=== PATIENT | male | born 1935 | race Two or more races ===

== ENCOUNTER 2023-03-06 21:12 | Inpatient (IN) | payer MEDICARE, MEDICAID ==
[~2023-03-06] VITALS: Ht 175.3 cm; Wt 80.7 kg
[2023-03-06 23:40] VITALS: BP 154/82; TEMP 98.2; O2SAT 95
[2023-03-07] VITALS: BP 154/82; TEMP 98.6; O2SAT 95
[2023-03-07] MEDS ORDERED: ONDANSETRON HCL/PF 4 MG/2 ML VIAL IVP PRN (00:30)
[2023-03-07] MEDS ORDERED: ACETAMINOPHEN 325 MG TABLET PO PRN (00:30)
[2023-03-07] MEDS ORDERED: Z GUARD REMEDY 4 OZ OINT TP PRN (00:30)
[2023-03-07] MEDS ORDERED: NORM10004 IV (01:25)
[2023-03-07] MEDS ORDERED: CEFT2VIA14 IV (01:25)
[2023-03-07] MEDS: ENOXAPARIN SODIUM 40 MG/0.4 ML DISP.SYRIN SQ SCH ×2 (01:39→21:00)
[2023-03-07] MEDS: IV D5/0.45 NACL 1,000 ML IV PRN ×2 (01:41→14:14)
[2023-03-07] MEDS ORDERED: OLAN5TAB3 PO (01:59)
[2023-03-07] MEDS ORDERED: CHOL2400 MC (01:59)
[2023-03-07] MEDS ORDERED: ALLO300T2 PO (01:59)
[2023-03-07] MEDS ORDERED: BISA-79 PO (01:59)
[2023-03-07] MEDS ORDERED: LEVO50TA8 PO (01:59)
[2023-03-07] MEDS ORDERED: ROSU10TA2 PO (01:59)
[2023-03-07] MEDS ORDERED: ASPI-1169 PO (01:59)
[2023-03-07] MEDS ORDERED: DUTA1CPM PO (01:59)
[2023-03-07 04:00] VITALS: BP 167/84; TEMP 97.6; O2SAT 97
[2023-03-07 08:00] VITALS: BP 165/90; TEMP 97.5; O2SAT 94
[2023-03-07] MEDS: PANTOPRAZOLE 40 MG VIAL IV SCH (08:57)
[2023-03-07 09:39] LABS: BASOPHILS % (AUTO) 0.1 % (0.0-2.0); EOSINOPHILS % (AUTO) 0.3 % (0.0-6.0); HEMATOCRIT 37 % (39-51); LYMPHOCYTES # (AUTO) 1.2 K/uL (0.8-4.8); LYMPHOCYTES % (AUTO) 14.7 % (20.0-44.0); MEAN CORPUSCULAR HEMOGLOBIN 32 PG (26.0-33.0); MEAN CORPUSCULAR HGB CONC 33 g/dl (31.0-36.0); MEAN CORPUSCULAR VOLUME 98 fL (80-96); MONOCYTES # (AUTO) 0.6 K/uL (0.1-1.30); MONOCYTES % (AUTO) 7.1 % (2.0-12.0); NEUTROPHILS # (AUTO) 6.3 K/uL (1.8-8.9); NEUTROPHILS % (AUTO) 77.8 % (43.0-81.0); PLATELET COUNT (AUTO) 61 K/uL (150-450); RED BLOOD CELL COUNT(AUTO) 3.78 MIL/uL (4.5-6.0); RED CELL DISTRIBUTION WIDTH 17.2 % (11.5-15.0); WHITE BLOOD COUNT (AUTO) 8.1 K/uL (4.3-11.0)
[2023-03-07 10:03] LABS: ALANINE AMINOTRANSFERASE 129 U/L (12-78); ALBUMIN 2.4 g/dL (3.4-5.0); ALKALINE PHOSPHATASE 159 U/L (46-116); ASPARTATE AMINOTRANSFERASE 95 U/L (15-37); BILIRUBIN,TOTAL 0.8 mg/dL (0.2-1.0); CALCIUM, SERUM 8.6 mg/dL (8.5-10.1); CARBON DIOXIDE 19 mmol/L (21-32); CHLORIDE 119 mmol/L (98-107); CREATININE 2.8 mg/dL (0.6-1.3); GLUCOSE 139 mg/dL (74-106); MAGNESIUM 2.3 mg/dL (1.8-2.4); PHOSPHORUS 4.3 mg/dL (2.5-4.9); POTASSIUM 3.5 mmol/L (3.5-5.1); SODIUM SERUM 150 mmol/L (136-145); TOTAL PROTEIN, SERUM 5.7 g/dL (6.4-8.2)
[2023-03-07 10:13] LABS: UREA NITROGEN, BLOOD 102 mg/dL (7-18)
[2023-03-07 10:31] LABS: CREATINE KINASE, TOTAL 44 U/L (39-308)
[2023-03-07] MEDS ORDERED: MIDO5TAB4 PO (10:32)
[2023-03-07] MEDS ORDERED: ERGO500040 PO (10:32)
[2023-03-07 12:39] LABS: ANISOCYTOSIS 1+; BASOPHILS % (MANUAL) 0 % (0.0-2.0); EOSINOPHILS % (MANUAL) 0 % (0-4); LYMPHOCYTES % (MANUAL) 16 % (16-48); MONOCYTES % (MANUAL) 9 % (0-11.0); NEUTROPHILS % (MANUAL) 75 (42-76); PLATELET ESTIMATE DECREASED
[2023-03-07 16:00] VITALS: BP 178/72; TEMP 97.2; O2SAT 98
[2023-03-07] MEDS ORDERED: CLONIDINE HCL 0.1 MG TABLET PO PRN (16:00)
[2023-03-07 20:00] VITALS: BP 132/80; TEMP 97.7; O2SAT 96
[2023-03-07] MEDS: CEFTRIAXONE 1 G in IV D5W 50 ML IV SCH (21:12)
[2023-03-07 22:21] VITALS: BP 132/80; TEMP 97.7; O2SAT 96
[2023-03-08] MEDS: IV D5/0.45 NACL 1,000 ML IV PRN (03:35)
[2023-03-08 07:09] LABS: BASOPHILS % (AUTO) 0.1 % (0.0-2.0); EOSINOPHILS % (AUTO) 0.6 % (0.0-6.0); HEMATOCRIT 34 % (39-51); HEMOGLOBIN 11.2 g/dL (13.5-17.5); LYMPHOCYTES # (AUTO) 1.1 K/uL (0.8-4.8); LYMPHOCYTES % (AUTO) 12.9 % (20.0-44.0); MEAN CORPUSCULAR HEMOGLOBIN 31 PG (26.0-33.0); MEAN CORPUSCULAR HGB CONC 33 g/dl (31.0-36.0); MEAN CORPUSCULAR VOLUME 95 fL (80-96); MONOCYTES # (AUTO) 0.6 K/uL (0.1-1.30); MONOCYTES % (AUTO) 7.8 % (2.0-12.0); NEUTROPHILS # (AUTO) 6.4 K/uL (1.8-8.9); NEUTROPHILS % (AUTO) 78.6 % (43.0-81.0); PLATELET COUNT (AUTO) 60 K/uL (150-450); RED BLOOD CELL COUNT(AUTO) 3.58 MIL/uL (4.5-6.0); RED CELL DISTRIBUTION WIDTH 16.3 % (11.5-15.0); WHITE BLOOD COUNT (AUTO) 8.2 K/uL (4.3-11.0)
[2023-03-08 07:13] LABS: CALCIUM, SERUM 8.7 mg/dL (8.5-10.1); CARBON DIOXIDE 22 mmol/L (21-32); CHLORIDE 121 mmol/L (98-107); CREATININE 2.4 mg/dL (0.6-1.3); GLUCOSE 141 mg/dL (74-106); MAGNESIUM 2.1 mg/dL (1.8-2.4); PHOSPHORUS 3.5 mg/dL (2.5-4.9); POTASSIUM 3.5 mmol/L (3.5-5.1); SODIUM SERUM 153 mmol/L (136-145)
[2023-03-08 07:16] LABS: UREA NITROGEN, BLOOD 85 mg/dL (7-18)
[2023-03-08 07:20] LABS: CHOLESTEROL 68 mg/dL (<200); HDL CHOLESTEROL 15 mg/dL (40-60); LDL 31 mg/dL (0-99); THYROID STIMULATING HORMONE 2.155 uIU/mL (0.358-3.74); TRIGLYCERIDES 145 mg/dL (30-150)
[2023-03-08 08:00] VITALS: BP 175/83; TEMP 97.7; O2SAT 64
[2023-03-08] MEDS: PANTOPRAZOLE 40 MG VIAL IV SCH (09:06)
[2023-03-08] MEDS ORDERED: LORAZEPAM INJ 2 MG/ML VIAL IV ONE (09:30)
[2023-03-08 11:06] LABS: LYMPHOCYTES % (MANUAL) 11 % (16-48); NEUTROPHILS % (MANUAL) 81 (42-76)
[2023-03-08 11:07] LABS: ANISOCYTOSIS 1+; BASOPHILS % (MANUAL) 0 % (0.0-2.0); EOSINOPHILS % (MANUAL) 0 % (0-4); MONOCYTES % (MANUAL) 8 % (0-11.0); PLATELET ESTIMATE DECREASED
[2023-03-08] MEDS: IV D5W 1,000 ML IV PRN (12:57)
[2023-03-08 16:00] VITALS: BP 138/81; TEMP 97.3; O2SAT 99
[2023-03-08] MEDS: DUTASTERIDE (0.5 MG) 0.5 MG CAPSULE PO SCH (17:34)
[2023-03-08] MEDS: OLANZAPINE 5 MG TABLET PO SCH (17:34)
[2023-03-08] MEDS: TAMSULOSIN 0.4 MG CAP.SR.24H PO SCH (17:34)
[2023-03-08] MEDS ORDERED: IV 1/2NS 1000 ML 500 ML IV PRN ×2 (19:00→19:40)
[2023-03-08 20:00] VITALS: BP 153/98; TEMP 97.7; O2SAT 94
[2023-03-08] MEDS: ENOXAPARIN SODIUM 30 MG/0.3 ML DISP.SYRIN SQ SCH (20:41)
[2023-03-08] MEDS: CEFTRIAXONE 1 G in IV D5W 50 ML IV SCH (21:02)
[2023-03-09] VITALS: BP_SYST 126; BP_SYST 150; BP_DIAS 71; BP_DIAS 88; TEMP 97.8; TEMP 98.2; O2SAT 95; O2SAT 96
[2023-03-09 05:00] VITALS: BP 100/43; TEMP 97.5; O2SAT 100
[2023-03-09 06:00] LABS: BASOPHILS % (AUTO) 0.1 % (0.0-2.0); EOSINOPHILS # (AUTO) 0.1 K/uL (0.0-0.7); EOSINOPHILS % (AUTO) 0.8 % (0.0-6.0); HEMATOCRIT 32 % (39-51); HEMOGLOBIN 10.2 g/dL (13.5-17.5); LYMPHOCYTES % (AUTO) 11.7 % (20.0-44.0); MEAN CORPUSCULAR HEMOGLOBIN 30 PG (26.0-33.0); MEAN CORPUSCULAR HGB CONC 32 g/dl (31.0-36.0); MEAN CORPUSCULAR VOLUME 95 fL (80-96); MONOCYTES # (AUTO) 0.6 K/uL (0.1-1.30); MONOCYTES % (AUTO) 6.5 % (2.0-12.0); NEUTROPHILS % (AUTO) 80.9 % (43.0-81.0); PLATELET COUNT (AUTO) 60 K/uL (150-450); RED BLOOD CELL COUNT(AUTO) 3.37 MIL/uL (4.5-6.0); RED CELL DISTRIBUTION WIDTH 16.6 % (11.5-15.0); WHITE BLOOD COUNT (AUTO) 8.6 K/uL (4.3-11.0)
[2023-03-09 06:07] LABS: PTH, INTACT 54 pg/mL (15-65)
[2023-03-09 06:24] LABS: ALANINE AMINOTRANSFERASE 54 U/L (12-78); ALKALINE PHOSPHATASE 108 U/L (46-116); ASPARTATE AMINOTRANSFERASE 20 U/L (15-37); BILIRUBIN,DIRECT 0.3 mg/dL (0.0-0.2); CALCIUM, SERUM 8.1 mg/dL (8.5-10.1); CARBON DIOXIDE 21 mmol/L (21-32); CHLORIDE 120 mmol/L (98-107); CREATININE 1.9 mg/dL (0.6-1.3); GLUCOSE 147 mg/dL (74-106); SODIUM SERUM 151 mmol/L (136-145); TOTAL PROTEIN, SERUM 4.9 g/dL (6.4-8.2); UREA NITROGEN, BLOOD 67 mg/dL (7-18)
[2023-03-09 06:28] LABS: POTASSIUM 2.8 mmol/L (3.5-5.1)
[2023-03-09] MEDS ORDERED: POTASSIUM CHLORIDE 10 MEQ/50 ML PREMIXED IVPB FOR PERIPHERAL LINE IV ONE (07:00)
[2023-03-09 08:00] VITALS: BP 154/80; TEMP 99; O2SAT 90
[2023-03-09] MEDS: POTASSIUM CL. PREMIX PERIPHER. 50 ML IV SCH ×2 (08:39→09:02)
[2023-03-09] MEDS: PANTOPRAZOLE 40 MG/PACK PACK PO SCH (08:46)
[2023-03-09] MEDS: ALLOPURINOL 100 MG TABLET PO SCH (08:46)
[2023-03-09] MEDS: LEVOTHYROXINE SODIUM 25 MCG TABLET PO SCH (08:46)
[2023-03-09] MEDS: ASPIRIN 81 MG TAB.CHEW PO SCH (08:51)
[2023-03-09] MEDS ORDERED: POTASSIUM CHLORIDE 20 MEQ POWDER PACKET GT ONE (09:00)
[2023-03-09 10:15] LABS: LYMPHOCYTES % (MANUAL) 12 % (16-48); MONOCYTES % (MANUAL) 5 % (0-11.0); NEUTROPHILS % (MANUAL) 83 (42-76)
[2023-03-09 10:16] LABS: ANISOCYTOSIS 1+; BASOPHILS % (MANUAL) 0 % (0.0-2.0); EOSINOPHILS % (MANUAL) 0 % (0-4); PLATELET ESTIMATE DECREASED
[2023-03-09] MEDS: IV D5W 1,000 ML IV PRN (11:30)
[2023-03-09 12:00] VITALS: BP 158/84; TEMP 99.2; O2SAT 90
[2023-03-09 12:07] LABS: *SPE A/G RATIO 0.8 (0.7-1.7); *SPE ALBUMIN 2.2 g/dL (2.9-4.4); *SPE ALPHA-1-GLOBULIN 0.3 g/dL (0.0-0.4); *SPE ALPHA-2-GLOBULIN 0.8 g/dL (0.4-1.0); *SPE BETA GLOBULIN 0.6 g/dL (0.7-1.3); *SPE GLOBULIN, TOTAL 2.7 g/dL (2.2-3.9); *SPE M-SPIKE Not Observed g/dL (Not Observed); *SPE PROTEIN TOTAL 4.9 g/dL (6.0-8.5)
[2023-03-09] MEDS: MEROPENEM 1 G in IV NS 0.9% 100 ML IV SCH ×2 (13:12→20:43)
[2023-03-09 14:21] LABS: CALCIUM, SERUM 8.3 mg/dL (8.5-10.1); CARBON DIOXIDE 21 mmol/L (21-32); CHLORIDE 120 mmol/L (98-107); GLUCOSE 126 mg/dL (74-106); SODIUM SERUM 151 mmol/L (136-145); UREA NITROGEN, BLOOD 61 mg/dL (7-18)
[2023-03-09] MEDS: OLANZAPINE 5 MG TABLET PO SCH (17:19)
[2023-03-09] MEDS: DUTASTERIDE (0.5 MG) 0.5 MG CAPSULE PO SCH (17:24)
[2023-03-09] MEDS: TAMSULOSIN 0.4 MG CAP.SR.24H PO SCH (17:27)
[2023-03-09] MEDS ORDERED: POTASSIUM CHLORIDE 20 MEQ TAB.PRT.SR PO ONE (19:30)
[2023-03-09 20:00] VITALS: BP 170/90; TEMP 98.6; O2SAT 98
[2023-03-09] MEDS: ENOXAPARIN SODIUM 30 MG/0.3 ML DISP.SYRIN SQ SCH (20:45)
[2023-03-09] MEDS ORDERED: CEFTRIAXONE 2 G in IV D5W 100 ML IV SCH (21:00)
[2023-03-09] MEDS ORDERED: CEFTRIAXONE 2 G in IV D5W 50 ML IV SCH (21:00)
[2023-03-10] MEDS: IV D5W 1,000 ML IV PRN ×2 (00:09→11:27)
[2023-03-10 08:00] VITALS: BP 144/114; TEMP 97.7; O2SAT 98
[2023-03-10] MEDS: PANTOPRAZOLE 40 MG/PACK PACK PO SCH (08:47)
[2023-03-10] MEDS: LEVOTHYROXINE SODIUM 25 MCG TABLET PO SCH (08:47)
[2023-03-10] MEDS: ALLOPURINOL 100 MG TABLET PO SCH (08:48)
[2023-03-10] MEDS: MEROPENEM 1 G in IV NS 0.9% 100 ML IV SCH ×2 (08:54→21:05)
[2023-03-10] MEDS: ASPIRIN 81 MG TAB.CHEW PO SCH (09:00)
[2023-03-10] MEDS: POTASSIUM CL. PREMIX PERIPHER. 50 ML IV SCH ×2 (11:30→12:55)
[2023-03-10 12:52] LABS: CALCIUM, SERUM 8.4 mg/dL (8.5-10.1); CARBON DIOXIDE 22 mmol/L (21-32); CHLORIDE 118 mmol/L (98-107); CREATININE 1.7 mg/dL (0.6-1.3); GLUCOSE 122 mg/dL (74-106); MAGNESIUM 1.8 mg/dL (1.8-2.4); PHOSPHORUS 2.1 mg/dL (2.5-4.9); POTASSIUM 3.1 mmol/L (3.5-5.1); SODIUM SERUM 147 mmol/L (136-145); UREA NITROGEN, BLOOD 46 mg/dL (7-18)
[2023-03-10] MEDS ORDERED: K PHOS NEUTRAL 250 MG TABLET PO ONE (13:30)
[2023-03-10 16:00] VITALS: BP 158/95; TEMP 98.1; O2SAT 97
[2023-03-10] MEDS: OLANZAPINE 5 MG TABLET PO SCH (17:06)
[2023-03-10] MEDS: DUTASTERIDE (0.5 MG) 0.5 MG CAPSULE PO SCH (17:08)
[2023-03-10] MEDS: TAMSULOSIN 0.4 MG CAP.SR.24H PO SCH (17:08)
[2023-03-10 20:00] VITALS: BP_SYST 160; BP_SYST 93; BP_DIAS 65; BP_DIAS 99; TEMP 97.7; TEMP 98.8; O2SAT 96; O2SAT 97
[2023-03-10] MEDS: ENOXAPARIN SODIUM 30 MG/0.3 ML DISP.SYRIN SQ SCH (20:57)
[2023-03-11] MEDS: IV D5W 1,000 ML IV PRN ×2 (01:01→18:40)
[2023-03-11 06:04] LABS: HEMATOCRIT 32 % (39-51); HEMOGLOBIN 10.2 g/dL (13.5-17.5); MEAN CORPUSCULAR HEMOGLOBIN 30 PG (26.0-33.0); MEAN CORPUSCULAR HGB CONC 32 g/dl (31.0-36.0); MEAN CORPUSCULAR VOLUME 94 fL (80-96); RED BLOOD CELL COUNT(AUTO) 3.35 MIL/uL (4.5-6.0); RED CELL DISTRIBUTION WIDTH 16.5 % (11.5-15.0); WHITE BLOOD COUNT (AUTO) 11.4 K/uL (4.3-11.0)
[2023-03-11 06:05] LABS: BASOPHILS % (AUTO) 0.2 % (0.0-2.0); EOSINOPHILS # (AUTO) 0.1 K/uL (0.0-0.7); LYMPHOCYTES # (AUTO) 1.9 K/uL (0.8-4.8); LYMPHOCYTES % (AUTO) 16.5 % (20.0-44.0); MONOCYTES # (AUTO) 0.6 K/uL (0.1-1.30); MONOCYTES % (AUTO) 5.3 % (2.0-12.0); NEUTROPHILS # (AUTO) 8.7 K/uL (1.8-8.9); PLATELET COUNT (AUTO) 83 K/uL (150-450)
[2023-03-11 07:11] LABS: ALANINE AMINOTRANSFERASE 41 U/L (12-78); ALBUMIN 2.2 g/dL (3.4-5.0); ALKALINE PHOSPHATASE 121 U/L (46-116); ASPARTATE AMINOTRANSFERASE 31 U/L (15-37); BILIRUBIN,TOTAL 1.7 mg/dL (0.2-1.0); CALCIUM, SERUM 8.2 mg/dL (8.5-10.1); CARBON DIOXIDE 23 mmol/L (21-32); CHLORIDE 115 mmol/L (98-107); CREATININE 1.5 mg/dL (0.6-1.3); GLUCOSE 129 mg/dL (74-106); MAGNESIUM 1.8 mg/dL (1.8-2.4); PHOSPHORUS 2.7 mg/dL (2.5-4.9); SODIUM SERUM 147 mmol/L (136-145); TOTAL PROTEIN, SERUM 5.5 g/dL (6.4-8.2); UREA NITROGEN, BLOOD 36 mg/dL (7-18)
[2023-03-11 08:00] VITALS: BP 153/76; TEMP 98.6; O2SAT 97
[2023-03-11] MEDS: PANTOPRAZOLE 40 MG/PACK PACK PO SCH (08:59)
[2023-03-11] MEDS: ALLOPURINOL 100 MG TABLET PO SCH (08:59)
[2023-03-11] MEDS: LEVOTHYROXINE SODIUM 25 MCG TABLET PO SCH (08:59)
[2023-03-11] MEDS: ASPIRIN 81 MG TAB.CHEW PO SCH (08:59)
[2023-03-11] MEDS: MEROPENEM 1 G in IV NS 0.9% 100 ML IV SCH ×2 (09:04→20:34)
[2023-03-11 09:51] LABS: ANISOCYTOSIS 1+
[2023-03-11 09:52] LABS: OVALOCYTES 1+; PLATELET ESTIMATE DECRE
[2023-03-11] MEDS: POTASSIUM CL. PREMIX PERIPHER. 50 ML IV SCH ×5 (10:19→15:30)
[2023-03-11 16:07] VITALS: BP 164/95; TEMP 98.2; O2SAT 97
[2023-03-11] MEDS: ENSURE ENLIVE CHOC 237 ML CAN PO SCH (17:00)
[2023-03-11] MEDS: DUTASTERIDE (0.5 MG) 0.5 MG CAPSULE PO SCH ×2 (17:03→18:00)
[2023-03-11] MEDS: OLANZAPINE 5 MG TABLET PO SCH (17:05)
[2023-03-11] MEDS: TAMSULOSIN 0.4 MG CAP.SR.24H PO SCH ×2 (17:07→18:00)
[2023-03-11] MEDS ORDERED: BISACODYL SUPP (10 MG) 10 MG/SUPP.RECT SUPP.RECT RC ONE (18:00)
[2023-03-11 20:00] VITALS: BP_SYST 134; BP_SYST 148; BP_DIAS 100; BP_DIAS 74; TEMP 99; O2SAT 94; O2SAT 97
[2023-03-11] MEDS: ENOXAPARIN SODIUM 30 MG/0.3 ML DISP.SYRIN SQ SCH ×2 (20:40→21:03)
[2023-03-11] MEDS: MIRTAZAPINE 15 MG TABLET PO SCH (22:48)
[2023-03-12] MEDS: IV D5W 1,000 ML IV PRN ×2 (05:08→18:54)
[2023-03-12 06:43] LABS: CALCIUM, SERUM 8.1 mg/dL (8.5-10.1); CREATININE 1.1 mg/dL (0.6-1.3); POTASSIUM 3.6 mmol/L (3.5-5.1)
[2023-03-12 08:00] VITALS: BP 115/76; TEMP 97.6; O2SAT 98
[2023-03-12] MEDS: PANTOPRAZOLE 40 MG/PACK PACK PO SCH (09:31)
[2023-03-12] MEDS: ASPIRIN 81 MG TAB.CHEW PO SCH (09:31)
[2023-03-12] MEDS: ALLOPURINOL 100 MG TABLET PO SCH (09:32)
[2023-03-12] MEDS: LEVOTHYROXINE SODIUM 25 MCG TABLET PO SCH (09:32)
[2023-03-12] MEDS: ENSURE ENLIVE CHOC 237 ML CAN PO SCH ×2 (09:32→17:00)
[2023-03-12] MEDS: MEROPENEM 1 G in IV NS 0.9% 100 ML IV SCH ×2 (09:38→20:52)
[2023-03-12 12:54] LABS: BASOPHILS % (AUTO) 0.4 % (0.0-2.0); EOSINOPHILS # (AUTO) 0.1 K/uL (0.0-0.7); EOSINOPHILS % (AUTO) 0.7 % (0.0-6.0); HEMATOCRIT 31 % (39-51); HEMOGLOBIN 10.1 g/dL (13.5-17.5); LYMPHOCYTES # (AUTO) 1.5 K/uL (0.8-4.8); MEAN CORPUSCULAR HEMOGLOBIN 30 PG (26.0-33.0); MEAN CORPUSCULAR HGB CONC 33 g/dl (31.0-36.0); MEAN CORPUSCULAR VOLUME 93 fL (80-96); MONOCYTES # (AUTO) 0.6 K/uL (0.1-1.30); MONOCYTES % (AUTO) 6.1 % (2.0-12.0); NEUTROPHILS # (AUTO) 7.6 K/uL (1.8-8.9); NEUTROPHILS % (AUTO) 77.8 % (43.0-81.0); PLATELET COUNT (AUTO) 103 K/uL (150-450); RED BLOOD CELL COUNT(AUTO) 3.31 MIL/uL (4.5-6.0); RED CELL DISTRIBUTION WIDTH 15.9 % (11.5-15.0); WHITE BLOOD COUNT (AUTO) 9.8 K/uL (4.3-11.0)
[2023-03-12 16:00] VITALS: BP 172/111; TEMP 99.1; O2SAT 96
[2023-03-12] MEDS: DUTASTERIDE (0.5 MG) 0.5 MG CAPSULE PO SCH (17:20)
[2023-03-12] MEDS: TAMSULOSIN 0.4 MG CAP.SR.24H PO SCH (17:20)
[2023-03-12] MEDS: OLANZAPINE 5 MG TABLET PO SCH (17:21)
[2023-03-12] MEDS: ACETAMINOPHEN 650 MG/SUPP.RECT RC PRN (17:54)
[2023-03-12] MEDS ORDERED: hydrALAZINE HCL IV 20 MG VIAL IV PRN (18:30)
[2023-03-12] MEDS: ENOXAPARIN SODIUM 30 MG/0.3 ML DISP.SYRIN SQ SCH (21:38)
[2023-03-12] MEDS: MIRTAZAPINE 15 MG TABLET PO SCH (22:00)
[2023-03-13 04:39] VITALS: BP 158/87; TEMP 97.6; O2SAT 97
[2023-03-13] MEDS: IV D5W 1,000 ML IV PRN ×2 (05:25→17:53)
[2023-03-13 07:35] LABS: BASOPHILS % (AUTO) 0.5 % (0.0-2.0); EOSINOPHILS # (AUTO) 0.1 K/uL (0.0-0.7); EOSINOPHILS % (AUTO) 0.7 % (0.0-6.0); HEMATOCRIT 33 % (39-51); HEMOGLOBIN 10.7 g/dL (13.5-17.5); LYMPHOCYTES # (AUTO) 1.7 K/uL (0.8-4.8); LYMPHOCYTES % (AUTO) 17.3 % (20.0-44.0); MEAN CORPUSCULAR HEMOGLOBIN 31 PG (26.0-33.0); MEAN CORPUSCULAR HGB CONC 33 g/dl (31.0-36.0); MEAN CORPUSCULAR VOLUME 93 fL (80-96); MONOCYTES # (AUTO) 0.7 K/uL (0.1-1.30); MONOCYTES % (AUTO) 7.2 % (2.0-12.0); NEUTROPHILS # (AUTO) 7.3 K/uL (1.8-8.9); NEUTROPHILS % (AUTO) 74.3 % (43.0-81.0); PLATELET COUNT (AUTO) 127 K/uL (150-450); RED BLOOD CELL COUNT(AUTO) 3.52 MIL/uL (4.5-6.0); RED CELL DISTRIBUTION WIDTH 16.1 % (11.5-15.0); WHITE BLOOD COUNT (AUTO) 9.8 K/uL (4.3-11.0)
[2023-03-13 07:46] LABS: CALCIUM, SERUM 8.2 mg/dL (8.5-10.1); POTASSIUM 3.2 mmol/L (3.5-5.1)
[2023-03-13] MEDS: LEVOTHYROXINE SODIUM 25 MCG TABLET PO SCH (07:48)
[2023-03-13 08:00] VITALS: BP 160/86; TEMP 98.3; O2SAT 100
[2023-03-13] MEDS: ENSURE ENLIVE CHOC 237 ML CAN PO SCH ×2 (08:00→17:00)
[2023-03-13] MEDS: PANTOPRAZOLE 40 MG/PACK PACK PO SCH (09:00)
[2023-03-13] MEDS: ALLOPURINOL 100 MG TABLET PO SCH (09:00)
[2023-03-13] MEDS ORDERED: POTASSIUM CHLORIDE 20 MEQ POWDER PACKET PO ONE (09:00)
[2023-03-13] MEDS: ASPIRIN 81 MG TAB.CHEW PO SCH (09:00)
[2023-03-13] MEDS: MEROPENEM 1 G in IV NS 0.9% 100 ML IV SCH ×2 (10:27→21:53)
[2023-03-13 16:00] VITALS: BP 140/90; TEMP 99.5; O2SAT 98
[2023-03-13] MEDS ORDERED: ACETAMINOPHEN 650 MG/SUPP.RECT RC PRN (17:00)
[2023-03-13] MEDS: TAMSULOSIN 0.4 MG CAP.SR.24H PO SCH (18:00)
[2023-03-13] MEDS: DUTASTERIDE (0.5 MG) 0.5 MG CAPSULE PO SCH (18:23)
[2023-03-13] MEDS: OLANZAPINE 5 MG TABLET PO SCH (18:23)
[2023-03-13] MEDS: ACETAMINOPHEN 650 MG/SUPP.RECT RC PRN (18:35)
[2023-03-13 20:00] VITALS: BP 105/57; TEMP 97.5; O2SAT 98
[2023-03-13] MEDS: MIRTAZAPINE 15 MG TABLET PO SCH (21:53)
[2023-03-13] MEDS: ENOXAPARIN SODIUM 30 MG/0.3 ML DISP.SYRIN SQ SCH (21:57)
[2023-03-14] MEDS: LEVOTHYROXINE SODIUM 25 MCG TABLET PO SCH (07:30)
[2023-03-14 08:00] VITALS: BP 138/81; TEMP 97.7; O2SAT 99
[2023-03-14] MEDS: ENSURE ENLIVE CHOC 237 ML CAN PO SCH (08:00)
[2023-03-14] MEDS: MEROPENEM 1 G in IV NS 0.9% 100 ML IV SCH (08:36)
[2023-03-14] MEDS: ASPIRIN 81 MG TAB.CHEW PO SCH (09:00)
[2023-03-14] MEDS: ALLOPURINOL 100 MG TABLET PO SCH (09:00)
[2023-03-14] MEDS: PANTOPRAZOLE 40 MG/PACK PACK PO SCH (09:00)
[2023-03-14] MEDS ORDERED: ERTA1VIA4 IV (09:46)
[2023-03-14] MEDS ORDERED: LACT-54 PO (09:46)
[2023-03-14] MEDS ORDERED: DUTA0.5C2 PO (09:46)
[2023-03-14] MEDS ORDERED: MIRT-121 PO (09:46)
[2023-03-14] MEDS ORDERED: ACET650S11 RC (09:46)
[2023-03-27] MEDS ORDERED: ERGOCALCIFEROL (VITAMIN D 2) 50,000 UNIT CAPSULE PO SCH (09:00)
== END 2023-03-14 16:10 | disposition hospice, home (50) | DRG 871 ==
LOC: MED 23:33 → TELE 03-08 17:20 → MED 03-09 11:53
PROVIDERS: ATTEND Nurse Practitioner Acute Care
PROC: 05H633Z Insertion of Infusion Device into Left Subclavian Vein, Percutaneous Approach (ICD-10-PCS; principal; 2023-03-09)
PROC: B547ZZA Ultrasonography of Left Subclavian Vein, Guidance (ICD-10-PCS; 2023-03-09)
DX: A41.51 Sepsis due to Escherichia coli [E. coli] (principal); G92.8 Other toxic encephalopathy; N17.0 Acute kidney failure with tubular necrosis; E44.0 Moderate protein-calorie malnutrition; N39.0 Urinary tract infection, site not specified; E87.0 Hyperosmolality and hypernatremia; Z16.12 Extended spectrum beta lactamase (ESBL) resistance; C64.2 Malignant neoplasm of left kidney, except renal pelvis; F03.93 Unspecified dementia, unspecified severity, with mood disturbance; I10 Essential (primary) hypertension; N13.9 Obstructive and reflux uropathy, unspecified; E78.5 Hyperlipidemia, unspecified; E87.6 Hypokalemia; E88.09 Other disorders of plasma-protein metabolism, not elsewhere classified; M89.8X9 Other specified disorders of bone, unspecified site; R62.7 Adult failure to thrive; Z86.73 Personal history of transient ischemic attack (TIA), and cerebral infarction without residual deficits; Z95.1 Presence of aortocoronary bypass graft; F03.90 Unspecified dementia, unspecified severity, without behavioral disturbance, psychotic disturbance, mood disturbance, and anxiety; I25.10 Atherosclerotic heart disease of native coronary artery without angina pectoris; R74.01 Elevation of levels of liver transaminase levels; Z68.26 Body mass index [BMI] 26.0-26.9, adult; R93.5 Abnormal findings on diagnostic imaging of other abdominal regions, including retroperitoneum; N28.1 Cyst of kidney, acquired; R65.20 Severe sepsis without septic shock; N32.3 Diverticulum of bladder; F39 Unspecified mood [affective] disorder; Z87.440 Personal history of urinary (tract) infections; Z96.649 Presence of unspecified artificial hip joint
CPT/HCPCS: 36410; 36415; 71045-TC; 76770-TC; 80048-TC; 80053-TC; 80061-TC; 80076-TC; 82550-TC; 83735-TC; 83970; 84100-TC; 84155; 84165; 84443-TC; 85025-TC; 86803; 87040-TC; 87186-TC; 92526; 92611-TC; 97110-TC; 97530-TC; A4223; C9113; G0378; J0360; J0696; J1650; J2060; J2185; J3480; J3490; J7030; J7060; J7070